=== PATIENT | male | born 2005 | race Hispanic/Latino ===

== ENCOUNTER 2023-03-18 17:57 | Emergency (ER) | payer OTHER ==
[~2023-03-18] VITALS: Ht 182.9 cm; Wt 81.6 kg
[2023-03-18] MEDS ORDERED: 0.9%NACL 1000ML 1,000 ML IV STA (18:05)
[2023-03-18] MEDS ORDERED: ONDANSETRON 4MG INJ ONE (18:07)
[2023-03-18] MEDS ORDERED: MORPHINE 4 MG SYG ONE (18:07)
[2023-03-18] MEDS ORDERED: HYDROMORPHONE 1 MG INJ ONE (18:11)
[2023-03-18 18:22] LABS: BASOPHILS % (AUTO) 0.5 % (0.0-5.0); EOSINOPHILS % (AUTO) 3.7 % (0.0-8.0); HEMATOCRIT 44.5 % (42-54); LYMPHOCYTES % (AUTO) 38.8 % (21.0-51.0); MEAN CORPUSCULAR HEMOGLOBIN 30.6 pg (27.0-33.0); MEAN CORPUSCULAR HGB CONC 35.5 g/dL (32.0-36.0); MEAN CORPUSCULAR VOLUME 86.2 fL (80-100); NEUTROPHILS % (AUTO) 46.8 % (40.0-77.0); PLATELET COUNT (AUTO) 344 K/uL (130-400); RED BLOOD CELL COUNT(AUTO) 5.16 MIL/uL (4.50-6.20); RED CELL DISTRIBUTION WIDTH 11.9 % (11.0-15.5); WHITE BLOOD COUNT (AUTO) 8.7 K/uL (4.8-10.8)
[2023-03-18 18:30] LABS: CREATININE 0.9 mg/dL (0.5-1.5); POTASSIUM 3.7 mmol/L (3.5-5.1)
[2023-03-18] MEDS ORDERED: 0.9%NACL 1000ML 1,000 ML IV ONE ×2 (18:30)
[2023-03-18] MEDS ORDERED: MORPHINE 4 MG SYG IVP ONE (18:30)
[2023-03-18] MEDS ORDERED: HYDROMORPHONE 1 MG INJ IVP PRN (18:30)
[2023-03-18] MEDS ORDERED: ONDANSETRON 4MG INJ IVP ONE (18:30)
[2023-03-18 18:35] LABS: ALBUMIN 4.6 g/dL (3.5-5.0); TOTAL PROTEIN, SERUM 7.9 g/dL (6.0-8.3)
[2023-03-18 21:30] VITALS: BP 143/82
== END 2023-03-18 21:33 | disposition short-term general hospital (02) ==
LOC: EDH 17:57
DX: T23.001A Burn of unspecified degree of right hand, unspecified site, initial encounter (principal); X08.8XXA Exposure to other specified smoke, fire and flames, initial encounter; Y93.89 Activity, other specified; Y92.89 Other specified places as the place of occurrence of the external cause; Y99.8 Other external cause status
CPT/HCPCS: 99285; 96374; 96361; 96375; 80053; 85025; 36415; 16000; 93005; J1170; J7030; J2405; J2270